=== PATIENT | female | born 1970 | race Caucasian/White ===

== ENCOUNTER 2016-11-10 07:16 | Day surgery (SDC) | payer MEDICARE, OTHER ==
[2016-11-05 09:50] VITALS: BMI 18.0
[~2016-11-10 07:16] MED LIST: LACTATED RINGERS 1,000 ML IV SCH
[2016-11-10] MEDS ORDERED: LACTATED RINGERS 1,000 ML IV ONE (07:31)
[2016-11-10 07:34] VITALS: TEMP 97
--- NOTE | 2016-11-10 07:39 | P.GSHP ---
History of Present Illness H&P Date: 11/10/16 CHIEF COMPLAINT: Protein calorie malnutrition HISTORY OF PRESENT ILLNESS: The patient is a 46-year-old female with a history of PEG tube. She reports the PEG tube had broken off. Now she requires placement of her PEG tube for prolonged tube feeding nutrition. PAST MEDICAL HISTORY: Please see list. PAST SURGICAL HISTORY: Please see list. MEDICATIONS: Please see list. ALLERGIES: Please see list. SOCIAL HISTORY: No illicit drug use FAMILY HISTORY: No reports of Crohn disease or ulcerative colitis. REVIEW OF ORGAN SYSTEMS: CONSTITUTIONAL: No reports of fevers or chills. GI: Denies any blood in stools or constipation. PHYSICAL EXAM: VITAL SIGNS: Stable GENERAL: Well-developed and pleasant in no acute distress. HEENT: No scleral icterus. Extraocular movements grossly intact. Moist buccal mucosa. NECK: Supple without lymphadenopathy. CHEST: Unlabored respirations. Equal bilateral excursions. CARDIOVASCULAR: Regular rate and rhythm. Distal 2+ pulses. ABDOMEN: Soft, nondistended. MUSCULOSKELETAL: No clubbing, cyanosis, or edema. ASSESSMENT: 1. Anorexia nervosa. 2. PEG tube status. 3. Protein malnutrition. PLAN: 1. Previous abdominal x-ray does not demonstrate foreign body stomach. 2. Will set up for placement of PEG tube. Past Medical History Past Medical History: Asthma, COPD, Diabetes Mellitus, Osteoarthritis (OA), Renal Disease, Seizure Disorder Additional Past Medical History / Comment(s): USES WALKER OR CANE, O2 ON 3L 24HRS A DAY. HX OF MIGRAINES, hx. pancreatitis, anorexia, hypokalemia, hypocalcemia, STATES MALABSORBTION SYNDROME, osteoporosis, neuropathy, will be starting HEMODIALYSIS again next week-(last dialysis February 2016- got MRSA in left arm fistula) ,chronic back arthriitis, muscle loss in legs, frequent falls due to neuropathy amd weakness in legs. pt states urinates once daily History of Any Multi-Drug Resistant Organisms: C-DIFF, MRSA Date of last positivie culture/infection: 02/23/16, MRSA MDRO Source:: [facility] Past Surgical History: Cholecystectomy Additional Past Surgical History / Comment(s): fistual rt arm for dialysis, LEEP procedure, picc line /later removed, past fistula in left arm-removed Past Anesthesia/Blood Transfusion Reactions: No Reported Reaction Past Psychological History: Anxiety, Depression Smoking Status: Current every day smoker Past Alcohol Use History: None Reported Additional Past Alcohol Use History / Comment(s): started smoking at age 16- smokes 7 10 CIGARETTES A DAY Past Drug Use History: None Reported Additional Drug Use History / Comment(s): . - Past Family History Mother Family Medical History: No Reported History Father Family Medical History: Cancer Additional Family Medical History / Comment(s): MULT. MYELOMA Medications and Allergies Home Medications Medication Instructions Recorded Confirmed Type Ondansetron Odt [Zofran ODT] 4 mg PO Q12HR PRN 02/18/14 11/05/16 History Fluticasone Propionate [Flonase] 1 spray EA NOSTRIL BID PRN 05/28/14 11/05/16 History Allopurinol [Zyloprim] 100 mg PO DAILY 06/30/14 11/05/16 History Albuterol Nebulized [Ventolin 2.5 mg INHALATION HS 12/04/14 11/05/16 History Nebulized] Calcitriol [Rocaltrol] 0.25 mcg PO SUTUTH 12/04/14 11/05/16 History Insulin Aspart [NovoLOG Flexpen] 4 units SQ BID 12/04/14 11/05/16 History Potassium Chloride [Klor-Con 20] 20 meq PO QID 12/04/14 11/05/16 History Morphine Sulfate [Ms Contin] 15 mg PO Q8HR 12/05/14 11/05/16 History Ergocalciferol [Vitamin D2 50,000 unit PO MOWEFR 12/20/14 11/05/16 History (DRISDOL)] Carisoprodol [Soma] 350 mg PO TID 04/29/16 11/05/16 History Rizatriptan Benzoate [Maxalt] 10 mg PO DAILY PRN 04/29/16 11/05/16 History Sertraline [Zoloft] 100 mg PO DAILY 04/29/16 11/05/16 History Zolpidem [Ambien] 10 mg PO HS 04/29/16 11/05/16 History oxyCODONE HCL 15 mg PO TID 05/03/16 11/05/16 History ALPRAZolam [Xanax] 2 mg PO BID 06/23/16 11/05/16 History Budesonide-Formot 160-4.5 Mcg 2 puff INHALATION BID 11/05/16 11/05/16 History [Symbicort 160-4.5 Mcg Inhaler] Gabapentin [Neurontin] 100 mg PO BID 11/05/16 11/05/16 History Ibuprofen [Motrin] 800 mg PO TID PRN 11/05/16 11/05/16 History Allergies Allergy/AdvReac Type Severity Reaction Status Date / Time adhesive Allergy Rash/Hives Verified 11/05/16 09:33 methylprednisolone sodium Allergy SEIZURE Verified 11/05/16 09:33 succinate [From Solu-Medrol] sulfamethoxazole Allergy Rash/Hives Verified 11/05/16 09:33 [From Bactrim] trimethoprim [From Bactrim] Allergy Rash/Hives Verified 11/05/16 09:33 Surgical - Exam Vital Signs Temp Pulse Resp BP 97 F L 75 18 85/59 11/10/16 07:32 11/10/16 07:32 11/10/16 07:32 11/10/16 07:32
[2016-11-10 07:54] LABS: Glucose,Whole Blood 97 mg/dL (75-99)
[2016-11-10 09:12] LABS: Calcium 9.2 mg/dL (8.4-10.2); Potassium 5.1 mmol/L (3.5-5.1)
[2016-11-10 09:21] LABS: Basophils # (A) 0.2 k/uL (0-0.2); Basophils % (A) 2 %; CH 30.4; CHCM 33.6; Eosinophils # (A) 0.7 k/uL (0-0.7); Eosinophils % (A) 6 %; HCT 34.6 % (34.0-46.0); HDW 2.54; HGB 11.6 gm/dL (11.4-16.0); Luc # (Auto) 0.23; Luc % (Auto) 2; Lymphocytes # (A) 1.8 k/uL (1.0-4.8); Lymphocytes % (A) 17 %; MCH 30.5 pg (25.0-35.0); MCHC 33.5 g/dL (31.0-37.0); Mean Platelet Volume 7.3; Monocytes # (A) 0.5 k/uL (0-1.0); Monocytes % (A) 5 %; Neutrophils % (A) 68 %; RBC 3.79 m/uL (3.80-5.40); RDW 14.5 % (11.5-15.5); WBC 10.3 k/uL (3.8-10.6)
[2016-11-10 09:29] LABS: MCV 91.2 fL (80.0-100.0)
[2016-11-10] MEDS ORDERED: MIDAZOLAM 2 MG/2 ML VIAL ONE (10:19)
[2016-11-10] MEDS ORDERED: LIDOCAINE 1% INJ 10MG/ML (20 ML MDV) ONE (10:19)
[2016-11-10] MEDS ORDERED: PROPOFOL 10 MG/ML 20 ML VIAL IV ONE (10:19)
[2016-11-10] MEDS ORDERED: PHENYLEPHRINE-0.9% NACL SYG 1 MG/10 ML SYRINGE ONE (10:19)
[2016-11-10] MEDS ORDERED: IV FLUID CONTINUATION 1,000 ML IV ONE (10:54)
[2016-11-10] MEDS ORDERED: LEVOFLOXACIN 250MG-D5W PMX 250 MG in DEXTROSE/WATER 1 50ML.BAG IVPB STA (10:56)
--- NOTE | 2016-11-10 10:56 | P.PCN ---
Date of Procedure: 11/10/16 Description of Procedure: PREOPERATIVE DIAGNOSIS: Severe protein malnutrition Anorexia nervosa Stage V renal insufficiency secondary to hypertension. Hypertensive heart disease. BMI 14.1. Inadequate caloric intake. Inadequate protein intake. Diabetes type 2. Asthma. Seizure disorder. Gastrostomy tube status. Dysphagia. Underweight. POSTOPERATIVE DIAGNOSIS: Gastrostomy tube status. Severe protein malnutrition Anorexia nervosa Stage V renal insufficiency secondary to hypertension. Hypertensive heart disease. BMI 14.1. Inadequate caloric intake. Inadequate protein intake. Diabetes type 2. Asthma. Seizure disorder. Gastrostomy tube status. Dysphagia. Underweight. Gastritis, superficial, with recent bleed. PROCEDURE: Esophagogastroduodenoscopy with percutaneous endoscopic gastrostomy tube placement 20-[place], End[employer] Pull technique [employer]. SURGEON: Janel Estrada MD ANESTHESIA: MAC. EBL: 0-mL INDICATIONS: The patient is a 46-year-old female who presents with a history of anorexia and protein malnutrition. Her main source of nutrition and caloric intake is via gastrostomy tube. Now she presents for placement. Benefits and risks of the procedure were described. Informed consent was obtained. DESCRIPTION: The patient was brought into the endoscopy suite and laid in supine position. Intravenous antibiotic, Ancef was given. A timeout protocol was confirmed with the team. After adequate IV sedation a bite block was placed. An Olympus gastroscope was passed along the posterior oropharynx down the distal esophagus. The stomach was entered. No foreign bodies were identified in the stomach. Focal areas of gastritis was encountered. No gastric polyps were identified. A point along the anterior surface of the stomach was selected. Using sterile technique, the skin was cleansed with ChloraPrep and an incision was made after illuminating the proposed PEG tube site. Using a 16-[place] needle , a guidewire was fed into the stomach under endoscopic visualization. A snare was used to pull the guidewire out of the mouth. Over the guidewire, the PEG tube was pulled over the guidewire until it exited through the skin incision. The guidewire was removed. The round fitting clasp was placed over the gastrostomy tube and fixed at 3 cm at the skin. A "Y" adapter was placed at the cut end of the feeding tube with a length of 12-inches. An endoscopic image of the gastrostomy tube within the stomach was captured. The patient tolerated the procedure well. Findings: 1. Successful placement of percutaneous endoscopic gastrostomy tube. Disposition: May restart tube feeds at previous goal. Plan - Discharge Summary Discharge Medication List Ondansetron Odt [Zofran ODT] 4 mg PO Q12HR PRN 02/18/14 [History] levETIRAcetam [Keppra] 500 mg PO BID #60 tab 03/24/14 [Rx] Fluticasone Propionate [Flonase] 1 spray EA NOSTRIL BID PRN 05/28/14 [History] Allopurinol [Zyloprim] 100 mg PO DAILY 06/30/14 [History] Albuterol Nebulized [Ventolin Nebulized] 2.5 mg INHALATION HS 12/04/14 [History] Calcitriol [Rocaltrol] 0.25 mcg PO SUTUTH 12/04/14 [History] Insulin Aspart [NovoLOG Flexpen] 4 units SQ BID 12/04/14 [History] Potassium Chloride [Klor-Con 20] 20 meq PO QID 12/04/14 [History] Morphine Sulfate [Ms Contin] 15 mg PO Q8HR 12/05/14 [History] Ergocalciferol [Vitamin D2 (DRISDOL)] 50,000 unit PO MOWEFR 12/20/14 [History] Carisoprodol [Soma] 350 mg PO TID 04/29/16 [History] Rizatriptan Benzoate [Maxalt] 10 mg PO DAILY PRN 04/29/16 [History] Sertraline [Zoloft] 100 mg PO DAILY 04/29/16 [History] Zolpidem [Ambien] 10 mg PO HS 04/29/16 [History] oxyCODONE HCL 15 mg PO TID 05/03/16 [History] ALPRAZolam [Xanax] 2 mg PO BID 06/23/16 [History] Budesonide-Formot 160-4.5 Mcg [Symbicort 160-4.5 Mcg Inhaler] 2 puff INHALATION BID 11/05/16 [History] Gabapentin [Neurontin] 100 mg PO BID 11/05/16 [History] Ibuprofen [Motrin] 800 mg PO TID PRN 11/05/16 [History] Follow up Appointment(s)/Referral(s): Janel Estrada MD [STAFF PHYSICIAN] - As Needed Patient Instructions/Handouts: How to Use and Care for Your PEG Tube (DC) Activity/Diet/Wound Care/Special Instructions: May restart tube feeds in 24 hours. Discharge Disposition: HOME SELF-CARE
[2016-11-10] MEDS ORDERED: FLUTICASONE 50MCG/SPRAY NASAL 16GM EA NOSTRIL PRN (10:57)
[2016-11-10] MEDS ORDERED: SUMAtriptan SUCCINATE 50 MG TAB PO PRN (10:57)
[2016-11-10 10:59] VITALS: RESP 16
[2016-11-10] MEDS ORDERED: ERGOCALCIFEROL 50,000 UNIT CAP PO SCH (11:00)
[2016-11-10] MEDS ORDERED: LEVOFLOXACIN 750MG-D5W PMX 750 MG/150 ML BAG IVPB ONE (11:47)
[2016-11-10 11:58] VITALS: BP 89/54; PULSE 73
[2016-11-10] MEDS ORDERED: POTASSIUM CHLORIDE ER 20 MEQ TAB.ER PO SCH (13:00)
[2016-11-10] MEDS ORDERED: MORPHINE SULFATE ER 15 MG TABLET PO SCH (16:00)
[2016-11-10] MEDS ORDERED: OXYCODONE HCL 15 MG PO SCH (16:00)
[2016-11-10] MEDS ORDERED: INSULIN ASPART 4 UNIT SQ SCH (21:00)
[2016-11-10] MEDS ORDERED: levETIRAcetam 500 MG TAB PO SCH (21:00)
[2016-11-10] MEDS ORDERED: ZOLPIDEM 10 MG TAB PO SCH (21:00)
[2016-11-10] MEDS ORDERED: GABAPENTIN 100 MG CAP PO SCH (21:00)
[2016-11-11] MEDS ORDERED: SERTRALINE 100 MG TAB PO SCH (09:00)
== END 2016-11-10 12:44 | disposition home or self-care (01) ==
LOC: ORWHC2ENDO 07:16
PROVIDERS: ATTEND Surgery Plastic and Reconstructive Surgery
DX: E43 Unspecified severe protein-calorie malnutrition (principal); F50.00 Anorexia nervosa, unspecified; Z68.1 Body mass index [BMI] 19.9 or less, adult; R13.10 Dysphagia, unspecified; I13.11 Hypertensive heart and chronic kidney disease without heart failure, with stage 5 chronic kidney disease, or end stage renal disease; N18.6 End stage renal disease; E11.9 Type 2 diabetes mellitus without complications; J45.909 Unspecified asthma, uncomplicated; J44.9 Chronic obstructive pulmonary disease, unspecified; G40.909 Epilepsy, unspecified, not intractable, without status epilepticus; Z99.81 Dependence on supplemental oxygen; M81.0 Age-related osteoporosis without current pathological fracture; F41.9 Anxiety disorder, unspecified; F32.9 Major depressive disorder, single episode, unspecified; Z91.81 History of falling; F17.210 Nicotine dependence, cigarettes, uncomplicated; Z79.1 Long term (current) use of non-steroidal anti-inflammatories (NSAID); Z79.4 Long term (current) use of insulin; Z79.899 Other long term (current) drug therapy; Z88.1 Allergy status to other antibiotic agents; Z88.2 Allergy status to sulfonamides; Z88.8 Allergy status to other drugs, medicaments and biological substances; Z91.048 Other nonmedicinal substance allergy status; Z86.14 Personal history of Methicillin resistant Staphylococcus aureus infection
CPT/HCPCS: 80048; 85025; 43246; J2250; J2001; J1956; J2370; J2704; B4087

== ENCOUNTER 2017-02-02 07:15 | Day surgery (SDC) | payer MEDICARE, OTHER ==
[2017-02-01 14:49] VITALS: BMI 19.7
[~2017-02-02 07:15] MED LIST changes: +LIDOCAINE 1% 20 ML VIAL (10MG/ML) FOR IV START INTRADERMA PRN
--- NOTE | 2017-02-02 07:54 | P.GSHP ---
History of Present Illness H&P Date: 02/02/17 CHIEF COMPLAINT: Protein calorie malnutrition HISTORY OF PRESENT ILLNESS: The patient is a 46-year-old female with a history of PEG tube. Now she requires replacement of her PEG tube for prolonged tube feeding nutrition. PAST MEDICAL HISTORY: Please see list. PAST SURGICAL HISTORY: Please see list. MEDICATIONS: Please see list. ALLERGIES: Please see list. SOCIAL HISTORY: No illicit drug use FAMILY HISTORY: No reports of Crohn disease or ulcerative colitis. REVIEW OF ORGAN SYSTEMS: CONSTITUTIONAL: No reports of fevers or chills. GI: Denies any blood in stools or constipation. PHYSICAL EXAM: VITAL SIGNS: Stable GENERAL: Well-developed and pleasant in no acute distress. HEENT: No scleral icterus. Extraocular movements grossly intact. Moist buccal mucosa. NECK: Supple without lymphadenopathy. CHEST: Unlabored respirations. Equal bilateral excursions. CARDIOVASCULAR: Regular rate and rhythm. Distal 2+ pulses. ABDOMEN: Soft, nondistended. MUSCULOSKELETAL: No clubbing, cyanosis, or edema. ASSESSMENT: 1. Anorexia nervosa. 2. PEG tube status. 3. Protein malnutrition. PLAN: 1. Recommend replacement of PEG tube. Past Medical History Past Medical History: Asthma, COPD, CVA/TIA, Diabetes Mellitus, Dialysis, GERD/ Reflux, Musculoskeletal Disorder, Osteoarthritis (OA), Renal Disease, Seizure Disorder, Skin Disorder Additional Past Medical History / Comment(s): HX OF TIA (8 MONTHS AGO), LAST SEIZURE 4 MONTHS AGO., NEUROPATHY OF HANDS & FEET, USES WALKER OR CANE & WHEELCHAIR,., O2 ON 3L 24HRS A DAY., HX OF MIGRAINES, HX OF PANCREATITIS, ANOREXIA, HYPOKALEMIA, HYPOCALCEMIA., STATES MALABSORBTION SYNDROME, OSTEOPOROSIS, OSTEOPENIA, SCOLIOSIS, BACK AND RIGHT HIP PAIN. , GOUT, FREQUENT DIARRHEA., OCCASIONAL PROBLEMS SWALLOWING-HAS GASTRIC FEEDING TUBE ( USES [facility] ), SHE STATES FEEDING TUBE FOR 3 YEARS AND IS CURRENTLY TORN WITH A TEMPORAY TUBE IN PLACE., FISTULA RIGHT UPPER ARM FOR HEMODIALYSIS (RECIEVES DIALYSIS Tue AND TUESDAY BUT HAD ON Tuesday02/01/17), STAGE 5 KIDNEY DISEASE., HX OF FALLS., MUSCLE LOSS IN LEGS AND WEAKNESS. PT STATES URINATES 2 X DAILY., STATES BED SORES ON RIGHT AND LEFT BUTTOCKS AND BETWEEN BUTTOCKS., MRSA FEBRUARY 2016 LEFT ARM FISTULA., C-Diff 2013., History of Any Multi-Drug Resistant Organisms: MRSA Date of last positivie culture/infection: 02/23/16, MRSA MDRO Source:: FISTULA SHUNT LEFT ARM Past Surgical History: Section, Cholecystectomy, Hernia Repair Additional Past Surgical History / Comment(s): fistula rt arm for dialysis, LEEP procedure, picc line /later removed, past fistula in left arm-removed , Hernia with mesh. Past Anesthesia/Blood Transfusion Reactions: No Reported Reaction Past Psychological History: Anxiety, Depression Smoking Status: Current every day smoker Past Alcohol Use History: None Reported Additional Past Alcohol Use History / Comment(s): SMOKES 4-5 CIGARETTES A DAY. STATES SMOKING FOR APPROX 15 YEARS. Past Drug Use History: None Reported Additional Drug Use History / Comment(s): . - Past Family History Mother Family Medical History: No Reported History Father Family Medical History: Cancer Additional Family Medical History / Comment(s): MULT. MYELOMA Medications and Allergies Home Medications Medication Instructions Recorded Confirmed Type Fluticasone Propionate [Flonase] 1 spray EA NOSTRIL TID 05/28/14 02/02/17 History Allopurinol [Zyloprim] 100 mg PO DAILY 06/30/14 02/02/17 History Potassium Chloride [Klor-Con 20] 20 meq PO QID 12/04/14 02/02/17 History Ergocalciferol [Vitamin D2 50,000 unit PO DAILY 12/20/14 02/02/17 History (DRISDOL)] Carisoprodol [Soma] 350 mg PO TID 04/29/16 02/02/17 History Rizatriptan Benzoate [Maxalt] 5 mg PO DAILY PRN 04/29/16 02/02/17 History Sertraline [Zoloft] 100 mg PO HS 04/29/16 02/02/17 History Zolpidem [Ambien] 10 mg PO HS 04/29/16 02/02/17 History oxyCODONE HCL 15 mg PO QID 05/03/16 02/02/17 History ALPRAZolam [Xanax] 2 mg PO BID 06/23/16 02/02/17 History Budesonide-Formot 160-4.5 Mcg 2 puff INHALATION TID 11/05/16 02/02/17 History [Symbicort 160-4.5 Mcg Inhaler] Gabapentin [Neurontin] 100 mg PO BID 11/05/16 02/02/17 History Ibuprofen [Motrin] 800 mg PO TID PRN 11/05/16 02/02/17 History Albuterol Inhaler [Ventolin Hfa 1 - 2 puff INHALATION Q6HR PRN 02/01/17 History Inhaler] Aspirin [Adult Low Dose Aspirin EC] 81 mg PO DAILY 02/01/17 02/02/17 History Dicyclomine [Bentyl] 20 mg PO TID 02/01/17 02/02/17 History Doxycycline Hyclate [Vibramycin] 100 mg PO BID 02/01/17 02/02/17 History Folic Acid 1 mg PO DAILY 02/01/17 02/02/17 History Furosemide [Lasix] 40 mg PO TID 02/01/17 02/02/17 History Hydrocortisone Cream 1 applic TOPICAL TID 02/01/17 02/02/17 History Hydrocortisone [Cortef] 5 mg PO BID 02/01/17 02/02/17 History Insulin Lispro [humaLOG Kwikpen] 4 unit SQ BID 02/01/17 02/02/17 History Midodrine HCl [ProAmatine] 2.5 mg PO TID PRN 02/01/17 02/02/17 History Multivit-Min36/Iron/Folic Acid 1 each PO DAILY 02/01/17 02/02/17 History [Geritol Complete Tablet] Multivitamins, Thera [Multivitamin 1 tab PO DAILY 02/01/17 02/02/17 History (formulary)] Sertraline [Zoloft] 50 mg PO HS 02/01/17 02/02/17 History Sevelamer [Renvela] 800 mg PO TID 02/01/17 02/02/17 History Thiamine [Vitamin B-1] 100 mg PO DAILY 02/01/17 02/02/17 History Torsemide [Demadex] 20 mg PO TID 02/01/17 02/02/17 History Vitamin B-12 Injection Monthly 1 dose SQ QMONTH 02/01/17 02/02/17 History oxyCODONE-APAP 10-325MG [Percocet 1 tab PO TID PRN 02/01/17 02/02/17 History 10-325 mg] Allergies Allergy/AdvReac Type Severity Reaction Status Date / Time adhesive Allergy Rash/Hives Verified 02/01/17 13:47 methylprednisolone sodium Allergy SEIZURE Verified 02/01/17 13:47 succinate [From Solu-Medrol] sulfamethoxazole Allergy Rash/Hives Verified 02/01/17 13:47 [From Bactrim] trimethoprim [From Bactrim] Allergy Rash/Hives Verified 02/01/17 13:47
[2017-02-02] MEDS ORDERED: SODIUM CHLORIDE 0.9% 1,000 ML IV ONE (08:17)
[2017-02-02 08:21] LABS: Glucose,Whole Blood 76 mg/dL (75-99)
[2017-02-02] MEDS ORDERED: PROPOFOL 10 MG/ML 20 ML VIAL IV ONE (08:54)
[2017-02-02] MEDS ORDERED: LIDOCAINE 1% INJ 10MG/ML (20 ML MDV) ONE (08:54)
[2017-02-02 09:41] VITALS: TEMP 97.2
[2017-02-02] MEDS ORDERED: LEVOFLOXACIN 250MG-D5W PMX 250 MG in DEXTROSE/WATER 1 50ML.BAG IVPB STA (09:57)
[2017-02-02 10:02] VITALS: BP 92/59
--- NOTE | 2017-02-02 10:05 | P.PCN ---
Date of Procedure: 02/02/17 Preoperative Diagnosis: Postoperative Diagnosis: Procedure(s) Performed: Implants: Indications for Procedure: Operative Findings: Description of Procedure: PREOPERATIVE DIAGNOSIS: Severe protein malnutrition Anorexia nervosa Stage V renal insufficiency secondary to hypertension. Hypertensive heart disease. BMI 19.7 Inadequate caloric intake. Inadequate protein intake. Diabetes type 2. Asthma. Seizure disorder. Gastrostomy tube status. Dysphagia. POSTOPERATIVE DIAGNOSIS: Severe protein malnutrition Anorexia nervosa Stage V renal insufficiency secondary to hypertension. Hypertensive heart disease. BMI 19.7 Inadequate caloric intake. Inadequate protein intake. Diabetes type 2. Asthma. Seizure disorder. Gastrostomy tube status. Dysphagia. History of gastrocutaneous fistula. Duodenitis. PROCEDURE: 1. Esophagogastroduodenoscopy with removal of previous gastrostomy tube. 2. Esophagogastroduodenoscopy with percutaneous endoscopic gastrostomy tube placement 20-[place], [employer] Pull technique [employer]. SURGEON: Janel Estrada MD ANESTHESIA: MAC. EBL: 0-mL INDICATIONS: The patient is a 46-year-old female who presents with a history of anorexia and protein malnutrition. Her main source of nutrition and caloric intake is via gastrostomy tube. Now she presents for placement as well as feeding tube had malfunction. Benefits and risks of the procedure were described. Informed consent was obtained. DESCRIPTION: The patient was brought into the endoscopy suite and laid in supine position. Intravenous antibiotic, Ancef was given. A timeout protocol was confirmed with the team. After adequate IV sedation a bite block was placed. An Olympus gastroscope was passed along the posterior oropharynx down the distal esophagus. The stomach was entered. No foreign bodies were identified in the stomach. Focal areas of gastritis was encountered. No gastric polyps were identified. A point along the anterior surface of the stomach was selected. The scope was passed to the second portion of duodenum which was consistent with mild duodenitis without ulcers. Careful inspection along the fundus of the stomach demonstrated a resolved gastrocutaneous fistula at a previous gastrostomy site. The previous ballooned gastrostomy tube was decompressed of the balloon using syringe where 10 mL of normal saline was removed. A guidewire was fed into the stomach under endoscopic visualization . The previous gastrostomy tube. A snare was used to pull the guidewire out of the mouth after removing the old gastrostomy tube. Over the guidewire, the new PEG tube was pulled over the guidewire until it exited through the skin. The guidewire was removed. The round fitting clasp was placed over the gastrostomy tube and fixed at 3.5 cm at the skin. A "Y" adapter was placed at the cut end of the feeding tube with a length of 12-inches. An endoscopic image of the gastrostomy tube within the stomach was captured. The patient tolerated the procedure well. Findings: 1. Successful placement of percutaneous endoscopic gastrostomy tube. Disposition: May restart tube feeds at previous goal. Plan - Discharge Summary New Discharge Prescriptions: No Action levETIRAcetam [Keppra] 500 mg PO BID #60 tab Fluticasone Propionate [Flonase] 1 spray EA NOSTRIL TID Allopurinol [Zyloprim] 100 mg PO DAILY Potassium Chloride [Klor-Con 20] 20 meq PO QID Ergocalciferol [Vitamin D2 (DRISDOL)] 50,000 unit PO DAILY Zolpidem [Ambien] 10 mg PO HS Sertraline [Zoloft] 100 mg PO HS Rizatriptan Benzoate [Maxalt] 5 mg PO DAILY PRN PRN Reason: Migraine Headache Carisoprodol [Soma] 350 mg PO TID oxyCODONE HCL 15 mg PO QID ALPRAZolam [Xanax] 2 mg PO BID Budesonide-Formot 160-4.5 Mcg [Symbicort 160-4.5 Mcg Inhaler] 2 puff INHALATION TID Ibuprofen [Motrin] 800 mg PO TID PRN PRN Reason: Pain Gabapentin [Neurontin] 100 mg PO BID Ranitidine HCl [Zantac] 150 mg PO BID #28 tab Sertraline [Zoloft] 50 mg PO HS Insulin Lispro [humaLOG Kwikpen] 4 unit SQ BID Torsemide [Demadex] 20 mg PO TID Thiamine [Vitamin B-1] 100 mg PO DAILY Multivitamins, Thera [Multivitamin (formulary)] 1 tab PO DAILY Folic Acid 1 mg PO DAILY Doxycycline Hyclate [Vibramycin] 100 mg PO BID Albuterol Inhaler [Ventolin Hfa Inhaler] 1 - 2 puff INHALATION Q6HR PRN PRN Reason: Shortness Of Breath Vitamin B-12 Injection Monthly 1 dose SQ QMONTH Sevelamer [Renvela] 800 mg PO TID Multivit-Min36/Iron/Folic Acid [Geritol Complete Tablet] 1 each PO DAILY Midodrine HCl [ProAmatine] 2.5 mg PO TID PRN PRN Reason: TO KEEP DIASTOLIC ABOVE 100 Hydrocortisone Cream 1 applic TOPICAL TID Furosemide [Lasix] 40 mg PO TID Hydrocortisone [Cortef] 5 mg PO BID Aspirin [Adult Low Dose Aspirin EC] 81 mg PO DAILY Dicyclomine [Bentyl] 20 mg PO TID oxyCODONE-APAP 10-325MG [Percocet 10-325 mg] 1 tab PO TID PRN PRN Reason: Pain Discharge Medication List levETIRAcetam [Keppra] 500 mg PO BID #60 tab 03/24/14 [Rx] Fluticasone Propionate [Flonase] 1 spray EA NOSTRIL TID 05/28/14 [History] Allopurinol [Zyloprim] 100 mg PO DAILY 06/30/14 [History] Potassium Chloride [Klor-Con 20] 20 meq PO QID 12/04/14 [History] Ergocalciferol [Vitamin D2 (DRISDOL)] 50,000 unit PO DAILY 12/20/14 [History] Carisoprodol [Soma] 350 mg PO TID 04/29/16 [History] Rizatriptan Benzoate [Maxalt] 5 mg PO DAILY PRN 04/29/16 [History] Sertraline [Zoloft] 100 mg PO HS 04/29/16 [History] Zolpidem [Ambien] 10 mg PO HS 04/29/16 [History] oxyCODONE HCL 15 mg PO QID 05/03/16 [History] ALPRAZolam [Xanax] 2 mg PO BID 06/23/16 [History] Budesonide-Formot 160-4.5 Mcg [Symbicort 160-4.5 Mcg Inhaler] 2 puff INHALATION TID 11/05/16 [History] Gabapentin [Neurontin] 100 mg PO BID 11/05/16 [History] Ibuprofen [Motrin] 800 mg PO TID PRN 11/05/16 [History] Ranitidine HCl [Zantac] 150 mg PO BID #28 tab 11/10/16 [Rx] Albuterol Inhaler [Ventolin Hfa Inhaler] 1 - 2 puff INHALATION Q6HR PRN [History] Aspirin [Adult Low Dose Aspirin EC] 81 mg PO DAILY 02/01/17 [History] Dicyclomine [Bentyl] 20 mg PO TID 02/01/17 [History] Doxycycline Hyclate [Vibramycin] 100 mg PO BID 02/01/17 [History] Folic Acid 1 mg PO DAILY 02/01/17 [History] Furosemide [Lasix] 40 mg PO TID 02/01/17 [History] Hydrocortisone Cream 1 applic TOPICAL TID 02/01/17 [History] Hydrocortisone [Cortef] 5 mg PO BID 02/01/17 [History] Insulin Lispro [humaLOG Kwikpen] 4 unit SQ BID 02/01/17 [History] Midodrine HCl [ProAmatine] 2.5 mg PO TID PRN 02/01/17 [History] Multivit-Min36/Iron/Folic Acid [Geritol Complete Tablet] 1 each PO DAILY [History] Multivitamins, Thera [Multivitamin (formulary)] 1 tab PO DAILY 02/01/17 [History ] Sertraline [Zoloft] 50 mg PO HS 02/01/17 [History] Sevelamer [Renvela] 800 mg PO TID 02/01/17 [History] Thiamine [Vitamin B-1] 100 mg PO DAILY 02/01/17 [History] Torsemide [Demadex] 20 mg PO TID 02/01/17 [History] Vitamin B-12 Injection Monthly 1 dose SQ QMONTH 02/01/17 [History] oxyCODONE-APAP 10-325MG [Percocet 10-325 mg] 1 tab PO TID PRN 02/01/17 [History] Follow up Appointment(s)/Referral(s): Janel Estrada MD [STAFF PHYSICIAN] - As Needed Patient Instructions/Handouts: *Surgery [facility] - (Anesthesia) Discharge Instructions Outpatient Surgery Activity/Diet/Wound Care/Special Instructions: May start tube feeds to goal. Discharge Disposition: HOME SELF-CARE
[2017-02-02 10:13] VITALS: PULSE 93; RESP 18
== END 2017-02-02 10:22 | disposition home or self-care (01) ==
LOC: ORWHC2ENDO 07:15
PROVIDERS: ATTEND Surgery Plastic and Reconstructive Surgery
DX: K94.23 Gastrostomy malfunction (principal); F50.00 Anorexia nervosa, unspecified; E43 Unspecified severe protein-calorie malnutrition; J44.9 Chronic obstructive pulmonary disease, unspecified; F41.9 Anxiety disorder, unspecified; I13.11 Hypertensive heart and chronic kidney disease without heart failure, with stage 5 chronic kidney disease, or end stage renal disease; F32.9 Major depressive disorder, single episode, unspecified; F17.200 Nicotine dependence, unspecified, uncomplicated; R13.10 Dysphagia, unspecified; E11.9 Type 2 diabetes mellitus without complications; J45.909 Unspecified asthma, uncomplicated; G40.909 Epilepsy, unspecified, not intractable, without status epilepticus; N18.6 End stage renal disease; Z99.2 Dependence on renal dialysis; K29.80 Duodenitis without bleeding; K21.9 Gastro-esophageal reflux disease without esophagitis; I25.2 Old myocardial infarction; Z68.1 Body mass index [BMI] 19.9 or less, adult; Y83.3 Surgical operation with formation of external stoma as the cause of abnormal reaction of the patient, or of later complication, without mention of misadventure at the time of the procedure; Z88.2 Allergy status to sulfonamides; Z79.891 Long term (current) use of opiate analgesic; Z79.51 Long term (current) use of inhaled steroids; Z79.899 Other long term (current) drug therapy; Z88.6 Allergy status to analgesic agent; Z79.1 Long term (current) use of non-steroidal anti-inflammatories (NSAID); Z79.4 Long term (current) use of insulin; Z79.52 Long term (current) use of systemic steroids
CPT/HCPCS: 84132; 43246; J2001; J2704; B4087